=== PATIENT | female | born 1940 | race African-American/Black ===

== ENCOUNTER 2018-01-24 19:00 | Inpatient (IN) | payer MEDICARE, BC ==
[~2018-01-24] VITALS: Ht 149.9 cm; Wt 75.7 kg
[~2018-01-24 19:00] MED LIST: ASPI-986 MT; ATOR10TA PO; FELO10TA PO; FELO5TAB PO; LISI10TA5 PO; METF-815 PO
[2018-01-24 20:00] VITALS: BP 135/72
[2018-01-24] MEDS ORDERED: LATA2.5D2 EACHEYE (21:53)
[2018-01-24] MEDS ORDERED: CHOL500063 PO (21:53)
[2018-01-24] MEDS ORDERED: MECL-109 PO (21:53)
[2018-01-24] MEDS ORDERED: KETO120S3 TP (21:53)
[2018-01-24 23:07] VITALS: BP 135/72
[2018-01-25 01:45] VITALS: BP 135/72
[2018-01-25] MEDS ORDERED: ACETAMINOPHEN 325MG TABLET PO PRN (06:15)
[2018-01-25] MEDS ORDERED: HYDROCODONE/ACETAMINOPHEN 5/325MG TABLET PO PRN (06:15)
[2018-01-25] MEDS: SODIUM CHLORIDE 0.9% INJ 3ML FLUSH IVF SCH ×3 (06:15→21:23)
[2018-01-25] MEDS ORDERED: ACETAMINOPHEN 650MG SUPP PR PRN (06:15)
[2018-01-25] MEDS ORDERED: HYDROCODONE/ACETAMINOPHEN 10/325MG TABLET PO PRN (06:15)
[2018-01-25] MEDS ORDERED: CLONIDINE 0.1MG TABLET PO PRN (06:15)
[2018-01-25] MEDS ORDERED: POTASSIUM CHLORIDE 20MEQ TABLET SR PO PRN (06:15)
[2018-01-25] MEDS ORDERED: MAGNESIUM/ALUMINUM HYDROXIDE/SIMETHICONE 30ML UDC PO PRN (06:15)
[2018-01-25] MEDS ORDERED: ONDANSETRON 4MG ODT PO PRN (06:15)
[2018-01-25] MEDS ORDERED: DEXTROSE 50% WATER 50ML SYRINGE IV PRN (06:15)
[2018-01-25] MEDS ORDERED: IPRATROPIUM/ALBUTEROL 0.5-3(2.5)MG/3ML NEB HHN PRN (06:15)
[2018-01-25] MEDS ORDERED: GUAIFENESIN 200MG/10ML SUGAR FREE UDC PO PRN (06:15)
[2018-01-25] MEDS ORDERED: DOCUSATE SODIUM 100MG CAPSULE PO PRN (06:15)
[2018-01-25] MEDS ORDERED: NA PHOS,M-B/NA PHOS,DI-BA ENEMA 118ML PR PRN (06:15)
[2018-01-25] MEDS ORDERED: DIPHENHYDRAMINE 50MG/ML VIAL IV PRN (06:15)
[2018-01-25] MEDS: INSULIN LISPRO 100 UNITS/ML SUBCUT SCH ×5 (07:02→21:00)
[2018-01-25] MEDS: BLOOD SUGAR DIAGNOSTIC STRIP TEST SCH ×4 (07:04→21:19)
[2018-01-25] MEDS: MECLIZINE 25MG TABLET PO SCH ×3 (07:40→21:17)
[2018-01-25 08:12] VITALS: BP 185/82
[2018-01-25] MEDS: ASPIRIN 325MG EC TABLET PO SCH (10:41)
[2018-01-25] MEDS: FELODIPINE 5 MG PO SCH ×2 (10:41→21:19)
[2018-01-25] MEDS: LISINOPRIL 10MG TABLET PO SCH ×2 (10:42→21:18)
[2018-01-25] MEDS: ENOXAPARIN 40MG/0.4ML SYR SUBCUT SCH (13:54)
[2018-01-25 20:00] VITALS: BP 161/84
[2018-01-25] MEDS: ATORVASTATIN CALCIUM 20MG TABLET PO SCH (21:17)
[2018-01-26] MEDS: SODIUM CHLORIDE 0.9% INJ 3ML FLUSH IVF SCH ×2 (06:15→13:00)
[2018-01-26] MEDS: BLOOD SUGAR DIAGNOSTIC STRIP TEST SCH ×4 (07:17→21:05)
[2018-01-26] MEDS: MECLIZINE 25MG TABLET PO SCH ×3 (07:17→21:54)
[2018-01-26] MEDS: INSULIN LISPRO 100 UNITS/ML SUBCUT SCH ×4 (07:22→21:00)
[2018-01-26 08:00] VITALS: BP 161/77
[2018-01-26 08:07] VITALS: BP 161/77
[2018-01-26] MEDS: ENOXAPARIN 40MG/0.4ML SYR SUBCUT SCH (09:00)
[2018-01-26] MEDS: ASPIRIN 325MG EC TABLET PO SCH (09:19)
[2018-01-26] MEDS: LISINOPRIL 10MG TABLET PO SCH ×2 (09:19→21:05)
[2018-01-26] MEDS: FELODIPINE 5 MG PO SCH ×2 (09:19→21:04)
[2018-01-26 20:00] VITALS: BP 174/76
[2018-01-26] MEDS: ATORVASTATIN CALCIUM 20MG TABLET PO SCH (21:54)
[2018-01-27] MEDS: BLOOD SUGAR DIAGNOSTIC STRIP TEST SCH ×4 (06:16→21:00)
[2018-01-27] MEDS: INSULIN LISPRO 100 UNITS/ML SUBCUT SCH ×4 (06:16→21:00)
[2018-01-27] MEDS: MECLIZINE 25MG TABLET PO SCH ×3 (06:16→22:11)
[2018-01-27 06:40] LABS: HEMATOCRIT 39.1 % (36.0-48.0); HEMOGLOBIN 13.2 g/dL (12.0-16.0); MEAN CORPUSCULAR HEMOGLOBIN 26.8 pg (28.0-32.0); MEAN CORPUSCULAR VOLUME 79.2 fL (81.0-99.0); PLATELET 255 x1000/uL (130-400); RED BLOOD CELL COUNT 4.94 mill/uL (4.2-5.4); RED CELL DISTRIBUTION WIDTH 15.5 % (11.6-14.6)
[2018-01-27 07:13] LABS: CHLORIDE 106 mEq/L (98-107)
[2018-01-27 08:00] VITALS: BP 153/74
[2018-01-27] MEDS: ENOXAPARIN 40MG/0.4ML SYR SUBCUT SCH (09:00)
[2018-01-27] MEDS: ASPIRIN 325MG EC TABLET PO SCH (09:06)
[2018-01-27] MEDS: LISINOPRIL 10MG TABLET PO SCH ×2 (09:06→22:12)
[2018-01-27] MEDS: FELODIPINE 5 MG PO SCH ×2 (09:06→21:17)
[2018-01-27] MEDS: METFORMIN HCL 500MG TABLET PO SCH (13:24)
[2018-01-27 20:00] VITALS: BP 155/72
[2018-01-27] MEDS: ATORVASTATIN CALCIUM 20MG TABLET PO SCH (21:18)
[2018-01-28] MEDS: MECLIZINE 25MG TABLET PO SCH ×3 (06:20→21:21)
[2018-01-28] MEDS: BLOOD SUGAR DIAGNOSTIC STRIP TEST SCH ×4 (06:28→21:20)
[2018-01-28] MEDS: INSULIN LISPRO 100 UNITS/ML SUBCUT SCH ×4 (06:28→21:00)
[2018-01-28 08:00] VITALS: BP 157/73
[2018-01-28 08:05] VITALS: BP 157/73
[2018-01-28] MEDS: ASPIRIN 325MG EC TABLET PO SCH (08:33)
[2018-01-28] MEDS: LISINOPRIL 10MG TABLET PO SCH ×2 (08:34→21:16)
[2018-01-28] MEDS: FELODIPINE 5 MG PO SCH ×2 (08:34→21:18)
[2018-01-28] MEDS: METFORMIN HCL 500MG TABLET PO SCH ×2 (08:35→08:37)
[2018-01-28] MEDS: ENOXAPARIN 40MG/0.4ML SYR SUBCUT SCH (08:36)
[2018-01-28] MEDS: ATORVASTATIN CALCIUM 20MG TABLET PO SCH (21:17)
[2018-01-28 22:28] VITALS: BP 172/86
[2018-01-29] MEDS: MECLIZINE 25MG TABLET PO SCH ×3 (05:54→21:27)
[2018-01-29] MEDS: BLOOD SUGAR DIAGNOSTIC STRIP TEST SCH ×4 (05:57→21:00)
[2018-01-29] MEDS: INSULIN LISPRO 100 UNITS/ML SUBCUT SCH ×4 (05:57→21:00)
[2018-01-29 08:00] VITALS: BP 153/82
[2018-01-29] MEDS: ENOXAPARIN 40MG/0.4ML SYR SUBCUT SCH (08:21)
[2018-01-29] MEDS: ASPIRIN 325MG EC TABLET PO SCH (08:26)
[2018-01-29] MEDS: LISINOPRIL 10MG TABLET PO SCH ×2 (08:27→21:26)
[2018-01-29] MEDS: METFORMIN HCL 500MG TABLET PO SCH ×2 (08:30→12:56)
[2018-01-29] MEDS: FELODIPINE 5 MG PO SCH ×2 (09:20→21:27)
[2018-01-29 20:00] VITALS: BP 160/79
[2018-01-29] MEDS: LATANOPROST 0.005% OPHTH DROPS 2.5ML EACHEYE SCH (21:25)
[2018-01-29] MEDS: ATORVASTATIN CALCIUM 20MG TABLET PO SCH (21:26)
[2018-01-30] MEDS: MECLIZINE 25MG TABLET PO SCH ×3 (06:01→21:48)
[2018-01-30] MEDS: BLOOD SUGAR DIAGNOSTIC STRIP TEST SCH ×4 (06:17→21:46)
[2018-01-30 07:55] VITALS: BP 121/79
[2018-01-30] MEDS: METFORMIN HCL 500MG TABLET PO SCH (08:21)
[2018-01-30] MEDS: FELODIPINE 5 MG PO SCH ×2 (08:21→21:45)
[2018-01-30] MEDS: ASPIRIN 325MG EC TABLET PO SCH (08:21)
[2018-01-30] MEDS: LISINOPRIL 10MG TABLET PO SCH ×2 (08:21→21:45)
[2018-01-30] MEDS: INSULIN LISPRO 100 UNITS/ML SUBCUT SCH ×4 (08:49→21:00)
[2018-01-30] MEDS: ENOXAPARIN 40MG/0.4ML SYR SUBCUT SCH (08:49)
[2018-01-30 20:00] VITALS: BP 171/76
[2018-01-30] MEDS: LATANOPROST 0.005% OPHTH DROPS 2.5ML EACHEYE SCH (21:45)
[2018-01-30] MEDS: ATORVASTATIN CALCIUM 20MG TABLET PO SCH (21:48)
[2018-01-31] MEDS: MECLIZINE 25MG TABLET PO SCH ×3 (06:56→21:28)
[2018-01-31] MEDS: BLOOD SUGAR DIAGNOSTIC STRIP TEST SCH ×4 (06:56→20:46)
[2018-01-31 08:00] VITALS: BP_SYST 143; BP_SYST 149; BP_DIAS 76; BP_DIAS 81
[2018-01-31] MEDS: ASPIRIN 325MG EC TABLET PO SCH (08:52)
[2018-01-31] MEDS: METFORMIN HCL 500MG TABLET PO SCH (08:52)
[2018-01-31] MEDS: LISINOPRIL 10MG TABLET PO SCH ×2 (08:53→20:41)
[2018-01-31] MEDS: FELODIPINE 5 MG PO SCH ×2 (08:54→20:40)
[2018-01-31] MEDS: INSULIN LISPRO 100 UNITS/ML SUBCUT SCH ×4 (08:55→20:46)
[2018-01-31] MEDS: ENOXAPARIN 40MG/0.4ML SYR SUBCUT SCH (08:55)
[2018-01-31] MEDS: ELIDEL 1% TOP PRN (11:44)
[2018-01-31 20:00] VITALS: BP 136/55
[2018-01-31] MEDS: LATANOPROST 0.005% OPHTH DROPS 2.5ML EACHEYE SCH (20:41)
[2018-01-31] MEDS: ATORVASTATIN CALCIUM 20MG TABLET PO SCH (20:41)
[2018-02-01] MEDS: BLOOD SUGAR DIAGNOSTIC STRIP TEST SCH ×4 (06:16→21:00)
[2018-02-01] MEDS: MECLIZINE 25MG TABLET PO SCH ×3 (06:17→21:34)
[2018-02-01 08:00] VITALS: BP 135/78
[2018-02-01] MEDS: ENOXAPARIN 40MG/0.4ML SYR SUBCUT SCH (09:00)
[2018-02-01] MEDS: INSULIN LISPRO 100 UNITS/ML SUBCUT SCH ×4 (09:00→21:00)
[2018-02-01] MEDS: LISINOPRIL 10MG TABLET PO SCH ×2 (09:42→21:34)
[2018-02-01] MEDS: FELODIPINE 5 MG PO SCH ×2 (09:43→21:33)
[2018-02-01] MEDS: METFORMIN HCL 500MG TABLET PO SCH (09:43)
[2018-02-01] MEDS: ASPIRIN 325MG EC TABLET PO SCH (09:43)
[2018-02-01] MEDS: ELIDEL 1% TOP PRN ×2 (09:49→21:44)
[2018-02-01 20:00] VITALS: BP 172/83
[2018-02-01 21:00] VITALS: BP 139/80
[2018-02-01] MEDS: ATORVASTATIN CALCIUM 20MG TABLET PO SCH (21:33)
[2018-02-01] MEDS: LATANOPROST 0.005% OPHTH DROPS 2.5ML EACHEYE SCH (21:33)
[2018-02-02] MEDS: MECLIZINE 25MG TABLET PO SCH ×2 (06:00→13:02)
[2018-02-02] MEDS: BLOOD SUGAR DIAGNOSTIC STRIP TEST SCH ×2 (06:30→10:47)
[2018-02-02] MEDS: INSULIN LISPRO 100 UNITS/ML SUBCUT SCH ×2 (07:48→12:13)
[2018-02-02 07:50] VITALS: BP 147/72
[2018-02-02] MEDS: LISINOPRIL 10MG TABLET PO SCH (08:33)
[2018-02-02] MEDS: METFORMIN HCL 500MG TABLET PO SCH (08:33)
[2018-02-02] MEDS: ASPIRIN 325MG EC TABLET PO SCH (08:33)
[2018-02-02] MEDS: FELODIPINE 5 MG PO SCH (08:34)
[2018-02-02] MEDS: ENOXAPARIN 40MG/0.4ML SYR SUBCUT SCH (09:00)
[2018-02-02 11:57] VITALS: BP 147/72
== END 2018-02-02 14:57 | disposition home health service (06) | DRG 66 ==
PROVIDERS: ADMIT Psychiatry & Neurology Neurology; ATTEND Family Medicine
DX: I63.9 Cerebral infarction, unspecified (principal); I10 Essential (primary) hypertension; E78.5 Hyperlipidemia, unspecified; E11.9 Type 2 diabetes mellitus without complications; H52.7 Unspecified disorder of refraction; R26.81 Unsteadiness on feet; M13.0 Polyarthritis, unspecified; R11.2 Nausea with vomiting, unspecified; Z98.42 Cataract extraction status, left eye; Z98.41 Cataract extraction status, right eye; Z79.899 Other long term (current) drug therapy
CPT/HCPCS: 36415; 80048; 82962; 85027; 92523; 93970; 97110; 97116; 97162; 97167; 97530; 97535; J1650; J8597

== ENCOUNTER 2023-07-15 12:24 | Inpatient (IN) | payer MEDICARE, BC ==
[~2023-07-15] VITALS: Ht 157.5 cm; Wt 70.3 kg
[~2023-07-15 12:24] MED LIST changes: -FELO10TA PO; -FELO5TAB PO; -LISI10TA5 PO; -METF-815 PO
[2023-07-15 13:45] LABS: BASOPHILS % 0.7 % (0.0-2.0); DIFFERENTIAL COMMENT 0; HEMATOCRIT. 34.9 % (36.0-48.0); HEMOGLOBIN. 11.5 g/dL (12.0-16.0); LYMPHOCYTES % 21.9 % (20.0-50.0); MEAN CORPUSCULAR HEMOGLOBIN 25.2 pg (28.0-32.0); MEAN CORPUSCULAR HGB CONC 32.8 g/dL (31.0-37.0); MEAN PLATELET VOLUME 7.6 fl (7.4-10.4); NEUTROPHILS % 67.4 % (40.0-76.0); PLATELET 266 x1000/uL (130-400); RED BLOOD CELL COUNT 4.54 mill/uL (4.2-5.4); RED CELL DISTRIBUTION WIDTH 17.2 % (11.6-14.6); WHITE BLOOD COUNT 5.1 x1000/uL (4.5-11.0)
[2023-07-15] MEDS: LABETALOL 5MG/ML SYR 20 MG/4 ML SYRINGE IV ONE (13:45)
[2023-07-15 14:04] LABS: INR 0.9; PARTIAL THROMBOPLASTIN TIME 28.5 sec (23.4-31.0)
[2023-07-15 14:15] LABS: ALANINE AMINOTRANSFERASE 9 IU/L (10-49); ASPARTATE AMINOTRANSFERASE 22 IU/L (<34); BILIRUBIN TOTAL 0.7 mg/dL (0.1-1.0); CARBON DIOXIDE 27 mEq/L (21-32); CHLORIDE 106 mEq/L (98-107); CREATININE 1.9 mg/dL (0.6-1.0); GLUCOSE 98 mg/dL (70-105); POTASSIUM 3.7 mEq/L (3.5-5.1); PROTEIN TOTAL 7.7 g/dL (6.0-8.3); SODIUM 140 mEq/L (136-145); TROPONIN I HIGH SENSITIVITY 12 ng/L (3.0-34); UREA NITROGEN BLOOD 23 mg/dL (9-23)
[2023-07-15] MEDS: ASPIRIN 325MG EC TABLET PO ONE (14:45)
[2023-07-15] MEDS ORDERED: MAGNESIUM/ALUMINUM HYDROXIDE/SIMETHICONE 30ML UDC PO PRN (17:15)
[2023-07-15] MEDS ORDERED: DEXTROSE 50% WATER 50ML SYRINGE IV PRN (17:15)
[2023-07-15] MEDS ORDERED: ONDANSETRON HCL 4MG/2ML INJ IV PRN (17:15)
[2023-07-15] MEDS ORDERED: IPRATROPIUM/ALBUTEROL 0.5-3(2.5)MG/3ML NEB HHN PRN (17:15)
[2023-07-15] MEDS ORDERED: ACETAMINOPHEN 325MG TABLET PO PRN ×2 (17:15)
[2023-07-15] MEDS: PANTOPRAZOLE SODIUM 40 MG/VIAL IV SCH (18:00)
[2023-07-15] MEDS: INSULIN LISPRO 100 UNITS/ML SUBCUT SCH (18:20)
[2023-07-15] MEDS: DEXT 5%/0.9% NACL 1,000 ML IV SCH (19:41)
[2023-07-15 20:07] LABS: IRON 72 ug/dL (50-170); PHOSPHORUS 3.4 mg/dL (2.5-4.9); TOTAL IRON BINDING CAPACITY 350 ug/dl (250-425)
[2023-07-15 20:41] LABS: FERRITIN 66 ng/mL (10-291); FOLIC ACID (FOLATE) SERUM > 20.00 ng/mL (>5.38); VITAMIN B12 SERUM 1286 pg/mL (211-911)
[2023-07-16 00:23] LABS: CREATINE KINASE 87 IU/L (34-145); CREATINE KINASE MB FRACTION 1.4 ng/mL (0.5-3.6); TROPONIN I HIGH SENSITIVITY 17 ng/L (3.0-34)
[2023-07-16] MEDS: BLOOD SUGAR DIAGNOSTIC STRIP TEST SCH ×2 (01:26→12:10)
[2023-07-16 07:05] LABS: BASOPHILS % 0.6 % (0.0-2.0); DIFFERENTIAL COMMENT 0; EOSINOPHILS % 3.7 % (0.0-5.0); HEMOGLOBIN. 11.6 g/dL (12.0-16.0); LYMPHOCYTES % 23.3 % (20.0-50.0); MEAN CORPUSCULAR HEMOGLOBIN 25.6 pg (28.0-32.0); MEAN CORPUSCULAR HGB CONC 33.2 g/dL (31.0-37.0); MEAN CORPUSCULAR VOLUME 77.2 fL (81.0-99.0); MEAN PLATELET VOLUME 7.8 fl (7.4-10.4); MONOCYTES % 13.1 % (2.0-8.0); NEUTROPHILS % 59.3 % (40.0-76.0); PLATELET 247 x1000/uL (130-400); RED BLOOD CELL COUNT 4.54 mill/uL (4.2-5.4); RED CELL DISTRIBUTION WIDTH 16.9 % (11.6-14.6)
[2023-07-16 07:52] LABS: ALANINE AMINOTRANSFERASE 8 IU/L (10-49); ALBUMIN 3.6 g/dL (3.2-4.8); ASPARTATE AMINOTRANSFERASE 20 IU/L (<34); BILIRUBIN TOTAL 0.6 mg/dL (0.1-1.0); CALCIUM 8.5 mg/dL (8.7-10.4); CARBON DIOXIDE 26 mEq/L (21-32); CHLORIDE 109 mEq/L (98-107); CREATINE KINASE 93 IU/L (34-145); CREATINE KINASE MB FRACTION 1.6 ng/mL (0.5-3.6); CREATININE 1.9 mg/dL (0.6-1.0); GLUCOSE 120 mg/dL (70-105); POTASSIUM 3.7 mEq/L (3.5-5.1); PROTEIN TOTAL 6.5 g/dL (6.0-8.3); SODIUM 145 mEq/L (136-145); T4 FREE 1.14 ng/dL (0.89-1.76); TROPONIN I HIGH SENSITIVITY 16 ng/L (3.0-34); UREA NITROGEN BLOOD 20 mg/dL (9-23)
[2023-07-16 08:00] VITALS: BP 184/82; PULSE 66; RESP 18; TEMP 96.9
[2023-07-16] MEDS ORDERED: DEXTROSE 50% WATER 50ML SYRINGE IV PRN (08:00)
[2023-07-16 09:44] VITALS: BP 184/82; PULSE 66; RESP 18; TEMP 96.9
[2023-07-16 12:00] VITALS: BP 206/90; PULSE 78; RESP 18; TEMP 97
[2023-07-16] MEDS: INSULIN LISPRO 100 UNITS/ML SUBCUT SCH (12:40)
[2023-07-16] MEDS: ASPIRIN 81MG EC TABLET PO SCH (13:09)
[2023-07-16] MEDS: HYDRALAZINE 20MG/ML VIAL IV PRN (13:26)
[2023-07-16] MEDS: HYDRALAZINE HCL 50MG TABLET PO SCH (13:40)
[2023-07-16 16:00] VITALS: BP 203/92; PULSE 81; RESP 18; TEMP 96.8
[2023-07-16 18:00] VITALS: BP 177/89; PULSE 82; RESP 18; TEMP 98.4
[2023-07-16 20:00] VITALS: BP 204/84; PULSE 94; RESP 18; TEMP 97.2
[2023-07-17] VITALS: BP 165/78; PULSE 94; RESP 18; TEMP 97.2
[2023-07-17 04:00] VITALS: BP 179/115; PULSE 95; RESP 18; TEMP 97.8
[2023-07-17 08:00] VITALS: BP 156/84; PULSE 77; RESP 22; TEMP 97
[2023-07-17] MEDS: AMLODIPINE 10MG TABLET PO SCH (09:00)
[2023-07-17 11:48] LABS: HEMATOCRIT 37.4 % (36.0-48.0); HEMOGLOBIN 12.2 g/dL (12.0-16.0); MEAN CORPUSCULAR HEMOGLOBIN 25.6 pg (28.0-32.0); MEAN CORPUSCULAR HGB CONC 32.6 g/dL (31.0-37.0); MEAN CORPUSCULAR VOLUME 78.6 fL (81.0-99.0); PLATELET 316 x1000/uL (130-400); RED BLOOD CELL COUNT 4.76 mill/uL (4.2-5.4); RED CELL DISTRIBUTION WIDTH 17.2 % (11.6-14.6); WHITE BLOOD COUNT 5.1 x1000/uL (4.5-11.0)
[2023-07-17 11:53] LABS: CALCIUM 9.2 mg/dL (8.7-10.4); CREATININE 1.9 mg/dL (0.6-1.0); POTASSIUM 3.8 mEq/L (3.5-5.1)
[2023-07-17 12:00] VITALS: BP 200/96; PULSE 75; RESP 20; TEMP 97.9
[2023-07-17] MEDS: CLONIDINE 0.1MG TABLET PO PRN (15:12)
[2023-07-17 16:00] VITALS: BP 188/79; PULSE 74; RESP 20; TEMP 97.3
[2023-07-17 20:00] VITALS: BP 188/88; PULSE 81; RESP 20; TEMP 98
[2023-07-17] MEDS: ATORVASTATIN CALCIUM 40MG TABLET PO SCH (20:50)
[2023-07-18] VITALS: BP 179/88; PULSE 79; RESP 18; TEMP 98.6
[2023-07-18 04:00] VITALS: BP 191/70; PULSE 88; RESP 20; TEMP 98.6
[2023-07-18 05:49] LABS: BASOPHILS % 0.6 % (0.0-2.0); DIFFERENTIAL COMMENT 0; EOSINOPHILS % 4.3 % (0.0-5.0); HEMATOCRIT. 33.2 % (36.0-48.0); HEMOGLOBIN. 10.9 g/dL (12.0-16.0); LYMPHOCYTES % 28.1 % (20.0-50.0); MEAN CORPUSCULAR HEMOGLOBIN 25.1 pg (28.0-32.0); MEAN CORPUSCULAR HGB CONC 32.8 g/dL (31.0-37.0); MEAN CORPUSCULAR VOLUME 76.7 fL (81.0-99.0); MEAN PLATELET VOLUME 7.8 fl (7.4-10.4); MONOCYTES % 10.3 % (2.0-8.0); NEUTROPHILS % 56.7 % (40.0-76.0); PLATELET 264 x1000/uL (130-400); RED BLOOD CELL COUNT 4.33 mill/uL (4.2-5.4); RED CELL DISTRIBUTION WIDTH 16.5 % (11.6-14.6); WHITE BLOOD COUNT 5.3 x1000/uL (4.5-11.0)
[2023-07-18 06:30] LABS: CALCIUM 8.7 mg/dL (8.7-10.4); CREATININE 2.4 mg/dL (0.6-1.0); POTASSIUM 3.4 mEq/L (3.5-5.1)
[2023-07-18 08:00] VITALS: BP 165/90; PULSE 74; RESP 20; TEMP 98.7
[2023-07-18] MEDS: FAMOTIDINE 20MG/2ML VIAL IV SCH (08:21)
[2023-07-18] MEDS: SODIUM CHLORIDE 0.45% 1,000 ML IV ONE (09:30)
[2023-07-18 09:55] LABS: PHOSPHORUS 3.7 mg/dL (2.5-4.9)
[2023-07-18 12:00] VITALS: BP 179/99; PULSE 63
[2023-07-18] MEDS: POTASSIUM CHLORIDE 20MEQ TABLET SR PO NR (14:34)
[2023-07-18 18:33] VITALS: BP 206/91; PULSE 66; RESP 20; TEMP 97.9
[2023-07-18 20:00] VITALS: BP 161/63; PULSE 60; RESP 18; TEMP 97.3
[2023-07-18] MEDS: ATORVASTATIN CALCIUM 40MG TABLET PO SCH (21:48)
[2023-07-19] VITALS (9 sets, daily range): BP systolic 143–190; BP diastolic 61–90; PULSE 57–84; RESP 16–22; TEMP 97–99.1; O2SAT 100
[2023-07-19] MEDS: CLONIDINE 0.1MG TABLET PO PRN (01:56)
[2023-07-19 06:28] LABS: ALANINE AMINOTRANSFERASE 20 IU/L (10-49); ALBUMIN 3.3 g/dL (3.2-4.8); ASPARTATE AMINOTRANSFERASE 25 IU/L (<34); BILIRUBIN TOTAL 0.6 mg/dL (0.1-1.0); CALCIUM 8.1 mg/dL (8.7-10.4); CARBON DIOXIDE 27 mEq/L (21-32); CHLORIDE 108 mEq/L (98-107); CREATININE 2.3 mg/dL (0.6-1.0); GLUCOSE 113 mg/dL (70-105); POTASSIUM 3.8 mEq/L (3.5-5.1); PROTEIN TOTAL 5.9 g/dL (6.0-8.3); SODIUM 141 mEq/L (136-145); UREA NITROGEN BLOOD 32 mg/dL (9-23)
[2023-07-19 06:37] LABS: HEMATOCRIT 31.2 % (36.0-48.0); HEMOGLOBIN 10.4 g/dL (12.0-16.0); MEAN CORPUSCULAR HEMOGLOBIN 25.5 pg (28.0-32.0); MEAN CORPUSCULAR HGB CONC 33.5 g/dL (31.0-37.0); MEAN CORPUSCULAR VOLUME 76.4 fL (81.0-99.0); PLATELET 247 x1000/uL (130-400); RED BLOOD CELL COUNT 4.08 mill/uL (4.2-5.4); RED CELL DISTRIBUTION WIDTH 16.7 % (11.6-14.6); WHITE BLOOD COUNT 5.2 x1000/uL (4.5-11.0)
[2023-07-19] MEDS: HYDRALAZINE HCL 50MG TABLET PO NR (09:02)
[2023-07-19] MEDS: HYDRALAZINE HCL 100MG TABLET PO SCH (13:36)
== END 2023-07-19 23:52 | DRG 65 ==
LOC: ER 12:24 → EDBEDREQ 14:22 → 5WST 14:51 → EDBEDREQ 14:54 → EDBEDREQTM 14:54 → 8WST 07-16 07:54
PROVIDERS: ADMIT Internal Medicine; ATTEND Internal Medicine
DX: I63.9 Cerebral infarction, unspecified (principal); G81.91 Hemiplegia, unspecified affecting right dominant side; N17.9 Acute kidney failure, unspecified; R47.01 Aphasia; I12.9 Hypertensive chronic kidney disease with stage 1 through stage 4 chronic kidney disease, or unspecified chronic kidney disease; E11.22 Type 2 diabetes mellitus with diabetic chronic kidney disease; N18.9 Chronic kidney disease, unspecified; D50.9 Iron deficiency anemia, unspecified; E87.6 Hypokalemia; Z79.82 Long term (current) use of aspirin; Z79.899 Other long term (current) drug therapy; Z79.84 Long term (current) use of oral hypoglycemic drugs
CPT/HCPCS: 36415; 70551; 71045; 76770; 80048; 80053; 80061; 82550; 82553; 82607; 82728; 82746; 82962; 83036; 83540; 83550; 83735; 83880; 84100; 84439; 84443; 84484; 85025; 85027; 86850; 86900; 92610; 93005; 93306; 93880; 93970; 97110; 97112; 97116; 97162; 97166; 97530; 97535; 99285; C9113; J0360; J1815; J3490; J7042